=== PATIENT | female | born 1985 | race Caucasian/White ===

== ENCOUNTER 2021-01-10 21:06 | Emergency (ER) | payer OTHER ==
[~2021-01-10] VITALS: Ht 157.5 cm; Wt 63.6 kg
[2021-01-10 21:15] VITALS: BP 130/82
--- NOTE | 2021-01-10 22:35 | NUR ---
PATIENT SPOKE WITH PROVIDER AND WAS EVALUATED TO FOLLOW UP WITH OUTPATIENT MENTAL HEALTH SERVICES. DEPARTED WITH DC INSTRUCTIONS.
== END 2021-01-10 22:36 | disposition home or self-care (01) ==
LOC: ER 21:08
DX: F32.9 Major depressive disorder, single episode, unspecified (principal); F41.9 Anxiety disorder, unspecified
CPT/HCPCS: 99281